=== PATIENT | male | born 1965 | race Caucasian/White ===

== ENCOUNTER 2017-04-02 18:39 | Inpatient (IN) | payer OTHER ==
[2017-04-02 20:13] LABS: ADD MAN DIFF? NO
[2017-04-02] MEDS: NITROGLYCERIN (SL) 0.4 MG TAB SL (20:14)
[2017-04-02] MEDS: ASPIRIN 325 MG TAB PO (20:14)
[2017-04-02 20:16] LABS: WHITE BLOOD COUNT 13.2 10^3/ul (4.8-10.8)
[2017-04-02 20:16] LABS: BASOPHIL # 0.1 10^3/ul (0.0-0.1); BASOPHILS % 0.6 % (0.0-2.0); EOSINOPHILS # 0.3 10^3/ul (0.0-0.5); EOSINOPHILS % 2.4 % (0.0-7.0); HEMATOCRIT 42.1 % (42.0-52.0); LYMPHOCYTES % 15.3 % (15.0-51.0); MEAN CORPUSCULAR HEMOGLOBIN 28.4 pg (29.0-33.0); MEAN CORPUSCULAR HGB CONC 33.3 g/dl (32.0-37.0); MEAN CORPUSCULAR VOLUME 85.4 fl (82.0-101.0); MEAN PLATELET VOLUME 12.1 fl (7.4-10.4); MONOCYTE # 1.4 10^3/ul (0.3-0.9); MONOCYTES % 10.4 % (0.0-11.0); NEUTROPHIL # 9.4 10^3/ul (1.6-7.5); PLATELET COUNT 291 10^3/UL (140-415); RED BLOOD COUNT 4.93 10^6/ul (4.70-6.10); RED CELL DISTRIBUTION WIDTH 13.9 % (11.5-14.5)
[2017-04-02 20:41] LABS: INR 0.89; PARTIAL THROMBOPLASTIN TIME 36.6 Sec (25.0-35.0); PROTIME 12.1 Sec (11.9-14.9); PT RATIO 0.9
[2017-04-02 20:43] LABS: ALANINE AMINOTRANSFERASE 45 IU/L (13-69); ALBUMIN 4.6 g/dl (3.3-4.9); ALBUMIN/GLOBULIN RATIO 1.31; ALKALINE PHOSPHATASE 61 IU/L (42-121); ANION GAP 17 (8-16); ASPARTATE AMINO TRANSFERASE 92 IU/L (15-46); BILIRUBIN,INDIRECT 0.1 mg/dl (0-1.1); BILIRUBIN,TOTAL 0.1 mg/dl (0.2-1.3); BLOOD UREA NITROGEN 17 mg/dl (7-20); CALCIUM 9.4 mg/dl (8.4-10.2); CARBON DIOXIDE 26 mmol/L (21-31); CHLORIDE 105 mmol/L (97-110); GLUCOSE 102 mg/dl (70-220); SODIUM 144 mmol/L (135-144); TOTAL PROTEIN 8.1 g/dl (6.1-8.1)
[2017-04-02 20:44] LABS: D-DIMER 328.22 ng/ml (<460)
[2017-04-02] MEDS: NITROGLYCERIN 50 MG/D5W (PMX) 250 ML IV (21:04)
[2017-04-02] MEDS: HEPARIN 1000 UNITS/ML 10 ML INJ IV (21:11)
[2017-04-02] MEDS ORDERED: HEPARIN 25000 UNITS/250 ML 250 ML IV (21:30)
[2017-04-02] MEDS ORDERED: morphine 2 MG INJ IV (21:30)
[2017-04-02] MEDS ORDERED: NITROGLYCERIN 50 MG/D5W (PMX) 250 ML IV (21:30)
[2017-04-02] MEDS ORDERED: METOPROLOL 25 MG TAB PO (21:30)
[2017-04-02] MEDS: ASPIRIN 81 MG TAB PO (21:30)
[2017-04-02] MEDS ORDERED: morphine 4 MG/ML VIAL IV (21:30)
[2017-04-02] MEDS: DEXTROSE 5%-0.45% NACL 1,000 ML IV (21:43)
[2017-04-02] MEDS ORDERED: ONDANSETRON 4 MG INJ IV (22:00)
[2017-04-02] MEDS ORDERED: ALBUTEROL/IPRATROPIUM (NEB) 3 ML AMP NEB (22:00)
[2017-04-02] MEDS ORDERED: ACETAMINOPHEN 650MG/20.3ML CUP PO (22:00)
[2017-04-02] MEDS ORDERED: ZOLPIDEM 5 MG TAB PO (22:00)
[2017-04-02] MEDS ORDERED: DOCUSATE SODIUM 100 MG CAP PO (22:00)
[2017-04-02] MEDS ORDERED: BISACODYL (EC) 5 MG TAB PO (22:00)
[2017-04-02] MEDS ORDERED: POTASSIUM CHLORIDE 20 MEQ POWDER FOR ORAL SOLN PO ×3 (22:00)
[2017-04-02] MEDS ORDERED: HYDROCODONE/APAP (5/325) TAB PO (22:00)
[2017-04-02] MEDS ORDERED: LORAZEPAM 2 MG INJ IV (22:00)
[2017-04-02] MEDS: HEPARIN 25000 UNITS/250 ML 250 ML IV (22:37)
[2017-04-02 22:44] LABS: CREATINE KINASE 979 IU/L (23-200)
[2017-04-02 22:45] LABS: CHOLESTEROL 309 mg/dl (100-200)
[2017-04-02 22:45] LABS: CHOL/HDL RATIO 7.9 RATIO; HDL CHOLESTEROL 39 mg/dl (28-71); LDL CHOLESTEROL,CALCULATED 235 mg/dl; TRIGLYCERIDES 176 mg/dl (0-149)
[2017-04-02 22:47] LABS: PROTIME 13.3 Sec (11.9-14.9)
[2017-04-02 22:55] LABS: B-TYPE NATRIURETIC PEPTIDE 576 PG/ML (0-125)
[2017-04-02 22:56] LABS: PARTIAL THROMBOPLASTIN TIME 78.2 Sec (25.0-35.0)
[2017-04-02 22:57] LABS: CK INDEX 4.5
[2017-04-03] MEDS ORDERED: LORAZEPAM 2 MG INJ IV (01:00)
[2017-04-03 01:13] LABS: ADD UMIC YES; UR ASCORBIC ACID NEGATIVE (NEGATIVE); UR BILIRUBIN (Dip) NEGATIVE (NEGATIVE); UR BLOOD (Dip) NEGATIVE (NEGATIVE); UR CLARITY CLEAR (CLEAR); UR COLOR YELLOW (YELLOW); UR GLUCOSE (Dip) NEGATIVE (NEGATIVE); UR KETONES (Dip) NEGATIVE (NEGATIVE); UR LEUKOCYTE ESTERASE (Dip) NEGATIVE Leu/ul (NEGATIVE); UR NITRITE (Dip) NEGATIVE (NEGATIVE); UR RBC 4 /HPF (0-5); UR SPECIFIC GRAVITY (Dip) 1.026 (1.003-1.030); UR TOTAL PROTEIN (Dip) 2+ mg/dl (NEGATIVE); UR UROBILINOGEN (Dip) NEGATIVE (NEGATIVE); UR WBC 1 /HPF (0-5)
[2017-04-03] MEDS: ATORVASTATIN 80 MG TAB PO ×2 (01:23→21:42)
[2017-04-03 01:53] LABS: AMPHETAMINE/METHAMPHETAMINE Negative (NEGATIVE); BARBITURATES Negative (NEGATIVE); BENZODIAZEPINES Negative (NEGATIVE); CANNABINOIDS Negative (NEGATIVE); COCAINE Negative (NEGATIVE); OPIATES Positive (NEGATIVE)
[2017-04-03 03:36] LABS: CREATINE KINASE 1015 IU/L (23-200)
[2017-04-03 03:48] LABS: CK INDEX 3.8
[2017-04-03] MEDS: PANTOPRAZOLE 40 MG INJ IV (05:06)
[2017-04-03] MEDS: HEPARIN 1000 UNITS/ML 10 ML INJ IV (08:10)
[2017-04-03] MEDS: CALCIUM CARBONATE 500 MG CHEW TAB PO ×4 (08:25→21:40)
[2017-04-03] MEDS: AL HYDROX/MG HYDROX/SIMETH 30 ML CUP PO ×4 (08:25→21:42)
[2017-04-03] MEDS: METOPROLOL 50 MG TAB PO (08:42)
[2017-04-03] MEDS: LISINOPRIL 20 MG TAB PO (08:43)
[2017-04-03 08:55] LABS: CREATINE KINASE 898 IU/L (23-200)
[2017-04-03] MEDS ORDERED: ATENOLOL 25 MG TAB PO (09:00)
[2017-04-03 09:07] LABS: CK INDEX 3.6
[2017-04-03 09:52] LABS: CREATINE KINASE 902 IU/L (23-200)
[2017-04-03 10:03] LABS: CK INDEX 3.4
[2017-04-03] MEDS ORDERED: morphine 2 MG INJ IV ×2 (10:30→13:00)
[2017-04-03] MEDS: DEXTROSE 5%-0.45% NACL 1,000 ML IV (11:03)
[2017-04-03] MEDS ORDERED: MIDAZOLAM 1 MG/ML 2 ML INJ (11:06)
[2017-04-03] MEDS ORDERED: FENTAnyl 50 MCG/ML VIAL (11:07)
[2017-04-03] MEDS ORDERED: VERAPAMIL 5 MG INJ (11:25)
[2017-04-03] MEDS ORDERED: IODIXANOL LOCM 100 ML BTL (11:25)
[2017-04-03] MEDS ORDERED: LIDOCAINE 1% (MDV) 20 ML INJ (11:25)
[2017-04-03] MEDS ORDERED: NITROGLYCERIN (IC) 100 MCG/ML INJ (11:25)
[2017-04-03] MEDS ORDERED: BIVALIRUDIN 250MG /NS 50 ML 50 ML IVPB (11:27)
[2017-04-03] MEDS ORDERED: PRASUGREL HYDROCHLORIDE 10 MG TABLET PO (11:28)
[2017-04-03] MEDS ORDERED: OXYCODONE/ACETAMINOPHEN (5/325) TAB PO (13:00)
[2017-04-03] MEDS: ISOSORBIDE DINITRATE 20 MG TAB PO ×3 (13:00→21:42)
[2017-04-03] MEDS: SOD CHLORIDE 0.9% 1,000 ML IV (14:42)
[2017-04-03 14:47] LABS: HEMOGLOBIN A1C 5.7 % (0-5.9)
[2017-04-03 14:53] LABS: PARTIAL THROMBOPLASTIN TIME 71.7 Sec (25.0-35.0)
[2017-04-03] MEDS: ACETAMINOPHEN 325 MG TAB PO (18:10)
[2017-04-03] MEDS: BUPROPION (SR) 150 MG TAB PO (21:42)
[2017-04-04 05:11] LABS: ADD MAN DIFF? NO
[2017-04-04 05:18] LABS: WHITE BLOOD COUNT 13.8 10^3/ul (4.8-10.8)
[2017-04-04 05:18] LABS: BASOPHILS % 0.3 % (0.0-2.0); EOSINOPHILS # 0.1 10^3/ul (0.0-0.5); EOSINOPHILS % 0.7 % (0.0-7.0); HEMATOCRIT 36.7 % (42.0-52.0); HEMOGLOBIN 12.3 g/dl (14.0-18.0); LYMPHOCYTES # 1.9 10^3/ul (0.8-2.9); LYMPHOCYTES % 13.8 % (15.0-51.0); MEAN CORPUSCULAR HEMOGLOBIN 28.8 pg (29.0-33.0); MEAN CORPUSCULAR HGB CONC 33.5 g/dl (32.0-37.0); MEAN CORPUSCULAR VOLUME 85.9 fl (82.0-101.0); MEAN PLATELET VOLUME 12.3 fl (7.4-10.4); MONOCYTE # 1.4 10^3/ul (0.3-0.9); MONOCYTES % 10.2 % (0.0-11.0); NEUTROPHIL # 10.3 10^3/ul (1.6-7.5); NEUTROPHILS % 74.6 % (39.0-77.0); PLATELET COUNT 244 10^3/UL (140-415); RED BLOOD COUNT 4.27 10^6/ul (4.70-6.10); RED CELL DISTRIBUTION WIDTH 14.1 % (11.5-14.5)
[2017-04-04] MEDS: PANTOPRAZOLE 40 MG INJ IV (05:43)
[2017-04-04 05:52] LABS: PHOSPHORUS 3.1 mg/dl (2.5-4.9)
[2017-04-04 05:57] LABS: ALANINE AMINOTRANSFERASE 41 IU/L (13-69); ALBUMIN 3.7 g/dl (3.3-4.9); ALBUMIN/GLOBULIN RATIO 1.08; ALKALINE PHOSPHATASE 52 IU/L (42-121); ANION GAP 11 (8-16); ASPARTATE AMINO TRANSFERASE 54 IU/L (15-46); BILIRUBIN,INDIRECT 0.3 mg/dl (0-1.1); BILIRUBIN,TOTAL 0.3 mg/dl (0.2-1.3); BLOOD UREA NITROGEN 14 mg/dl (7-20); CALCIUM 9.4 mg/dl (8.4-10.2); CARBON DIOXIDE 27 mmol/L (21-31); CHLORIDE 107 mmol/L (97-110); CHOL/HDL RATIO 6.2 RATIO; CHOLESTEROL 232 mg/dl (100-200); CREATININE 0.92 mg/dl (0.61-1.24); GLUCOSE 176 mg/dl (70-220); HDL CHOLESTEROL 37 mg/dl (28-71); LDL CHOLESTEROL,CALCULATED 167 mg/dl; POTASSIUM 3.8 mmol/L (3.5-5.1); SODIUM 141 mmol/L (135-144); TOTAL PROTEIN 7.1 g/dl (6.1-8.1); TRIGLYCERIDES 142 mg/dl (0-149)
[2017-04-04 06:00] LABS: B-TYPE NATRIURETIC PEPTIDE 422 PG/ML (0-125)
[2017-04-04 06:02] LABS: CK INDEX 2.2
[2017-04-04 06:09] LABS: CK-MB 8.81 ng/ml (0.0-2.4); CREATINE KINASE 407 IU/L (23-200)
[2017-04-04 06:22] LABS: THYROID STIMULATING HORMONE 0.615 MIU/L (0.465-4.680)
[2017-04-04] MEDS: ASPIRIN (EC) 81 MG TAB PO (08:12)
[2017-04-04] MEDS: CALCIUM CARBONATE 500 MG CHEW TAB PO ×4 (08:12→20:20)
[2017-04-04] MEDS: ISOSORBIDE DINITRATE 20 MG TAB PO ×3 (08:12→20:22)
[2017-04-04] MEDS: PRASUGREL HYDROCHLORIDE 10 MG TABLET PO (08:12)
[2017-04-04] MEDS: LISINOPRIL 20 MG TAB PO (08:13)
[2017-04-04] MEDS: AL HYDROX/MG HYDROX/SIMETH 30 ML CUP PO ×4 (08:13→20:21)
[2017-04-04] MEDS: NICOTINE (21 MG/24 HR) PATCH TRANSDERM (11:18)
[2017-04-04] MEDS: ACETAMINOPHEN 325 MG TAB PO (18:54)
[2017-04-04] MEDS: ATORVASTATIN 80 MG TAB PO (20:21)
[2017-04-04] MEDS: BUPROPION (SR) 150 MG TAB PO (20:22)
[2017-04-05] MEDS: PANTOPRAZOLE 40 MG INJ IV (06:14)
[2017-04-05] MEDS ORDERED: MIDAZOLAM 1 MG/ML 2 ML INJ (07:17)
[2017-04-05] MEDS ORDERED: BIVALIRUDIN 250MG /NS 50 ML 50 ML IVPB (07:17)
[2017-04-05] MEDS ORDERED: LIDOCAINE 1% (MDV) 20 ML INJ (07:17)
[2017-04-05] MEDS ORDERED: FENTAnyl 50 MCG/ML VIAL (07:17)
[2017-04-05] MEDS ORDERED: NITROGLYCERIN (IC) 100 MCG/ML INJ (07:31)
[2017-04-05] MEDS ORDERED: VERAPAMIL 5 MG INJ (07:31)
[2017-04-05 07:45] LABS: ADD MAN DIFF? NO
[2017-04-05 07:55] LABS: ABNORMAL IP MESSAGE 1; BASOPHIL # 0.1 10^3/ul (0.0-0.1); BASOPHILS % 0.6 % (0.0-2.0); EOSINOPHILS # 0.3 10^3/ul (0.0-0.5); LYMPHOCYTES # 2.3 10^3/ul (0.8-2.9); LYMPHOCYTES % 16.1 % (15.0-51.0); MEAN CORPUSCULAR HEMOGLOBIN 28.4 pg (29.0-33.0); MEAN CORPUSCULAR HGB CONC 32.5 g/dl (32.0-37.0); MEAN CORPUSCULAR VOLUME 87.5 fl (82.0-101.0); MEAN PLATELET VOLUME 11.8 fl (7.4-10.4); MONOCYTE # 1.6 10^3/ul (0.3-0.9); MONOCYTES % 10.9 % (0.0-11.0); NEUTROPHILS % 69.9 % (39.0-77.0); PLATELET COUNT 272 10^3/UL (140-415); POSITIVE DIFF @See below; RED BLOOD COUNT 4.57 10^6/ul (4.70-6.10); RED CELL DISTRIBUTION WIDTH 13.9 % (11.5-14.5)
[2017-04-05 07:55] LABS: WHITE BLOOD COUNT 14.3 10^3/ul (4.8-10.8)
[2017-04-05 08:12] LABS: CREATINE KINASE 201 IU/L (23-200)
[2017-04-05 08:14] LABS: ALANINE AMINOTRANSFERASE 29 IU/L (13-69); ALBUMIN 4.2 g/dl (3.3-4.9); ALBUMIN/GLOBULIN RATIO 1.07; ALKALINE PHOSPHATASE 62 IU/L (42-121); ANION GAP 14 (8-16); ASPARTATE AMINO TRANSFERASE 34 IU/L (15-46); BILIRUBIN,INDIRECT 0.3 mg/dl (0-1.1); BILIRUBIN,TOTAL 0.3 mg/dl (0.2-1.3); BLOOD UREA NITROGEN 20 mg/dl (7-20); CALCIUM 9.7 mg/dl (8.4-10.2); CARBON DIOXIDE 29 mmol/L (21-31); CHLORIDE 104 mmol/L (97-110); CREATININE 1.05 mg/dl (0.61-1.24); GLUCOSE 115 mg/dl (70-220); MAGNESIUM 2.3 mg/dl (1.7-2.5); POTASSIUM 4.1 mmol/L (3.5-5.1); SODIUM 143 mmol/L (135-144); TOTAL PROTEIN 8.1 g/dl (6.1-8.1)
[2017-04-05 08:22] LABS: B-TYPE NATRIURETIC PEPTIDE 170 PG/ML (0-125)
[2017-04-05] MEDS ORDERED: IODIXANOL LOCM 100 ML BTL ×2 (08:22)
[2017-04-05 08:24] LABS: CK INDEX 1.3
[2017-04-05] MEDS: PRASUGREL HYDROCHLORIDE 10 MG TABLET PO (08:30)
[2017-04-05 08:42] LABS: CK-MB 2.54 ng/ml (0.0-2.4)
[2017-04-05 09:16] LABS: PROTIME 12.2 Sec (11.9-14.9)
[2017-04-05] MEDS: ISOSORBIDE DINITRATE 20 MG TAB PO ×3 (11:09→20:27)
[2017-04-05] MEDS: AL HYDROX/MG HYDROX/SIMETH 30 ML CUP PO ×4 (11:11→20:27)
[2017-04-05] MEDS: CALCIUM CARBONATE 500 MG CHEW TAB PO ×4 (11:12→21:44)
[2017-04-05] MEDS: LISINOPRIL 20 MG TAB PO (11:13)
[2017-04-05] MEDS: NICOTINE (21 MG/24 HR) PATCH TRANSDERM (11:16)
[2017-04-05] MEDS: ASPIRIN (EC) 81 MG TAB PO (11:19)
[2017-04-05] MEDS: SOD CHLORIDE 0.9% 1,000 ML IV (17:00)
[2017-04-05] MEDS: ATORVASTATIN 80 MG TAB PO (20:26)
[2017-04-05] MEDS: BUPROPION (SR) 150 MG TAB PO (21:44)
[2017-04-06] MEDS: PANTOPRAZOLE 40 MG INJ IV (05:23)
[2017-04-06 08:27] LABS: ADD MAN DIFF? NO
[2017-04-06 08:33] LABS: WHITE BLOOD COUNT 11.2 10^3/ul (4.8-10.8)
[2017-04-06 08:33] LABS: BASOPHIL # 0.1 10^3/ul (0.0-0.1); BASOPHILS % 0.4 % (0.0-2.0); EOSINOPHILS # 0.3 10^3/ul (0.0-0.5); EOSINOPHILS % 2.2 % (0.0-7.0); HEMATOCRIT 37.2 % (42.0-52.0); HEMOGLOBIN 12.2 g/dl (14.0-18.0); LYMPHOCYTES % 17.5 % (15.0-51.0); MEAN CORPUSCULAR HEMOGLOBIN 28.3 pg (29.0-33.0); MEAN CORPUSCULAR HGB CONC 32.8 g/dl (32.0-37.0); MEAN CORPUSCULAR VOLUME 86.3 fl (82.0-101.0); MEAN PLATELET VOLUME 12.4 fl (7.4-10.4); MONOCYTE # 1.1 10^3/ul (0.3-0.9); MONOCYTES % 9.7 % (0.0-11.0); NEUTROPHIL # 7.8 10^3/ul (1.6-7.5); NEUTROPHILS % 69.8 % (39.0-77.0); PLATELET COUNT 252 10^3/UL (140-415); RED BLOOD COUNT 4.31 10^6/ul (4.70-6.10); RED CELL DISTRIBUTION WIDTH 13.8 % (11.5-14.5)
[2017-04-06] MEDS: LISINOPRIL 20 MG TAB PO (08:44)
[2017-04-06] MEDS: AL HYDROX/MG HYDROX/SIMETH 30 ML CUP PO ×2 (08:44→12:35)
[2017-04-06] MEDS: ASPIRIN (EC) 81 MG TAB PO (08:44)
[2017-04-06] MEDS: ISOSORBIDE DINITRATE 20 MG TAB PO ×2 (08:44→12:36)
[2017-04-06] MEDS: CALCIUM CARBONATE 500 MG CHEW TAB PO ×2 (08:44→12:35)
[2017-04-06] MEDS: PRASUGREL HYDROCHLORIDE 10 MG TABLET PO (08:44)
[2017-04-06] MEDS: NICOTINE (21 MG/24 HR) PATCH TRANSDERM (08:45)
[2017-04-06 08:48] LABS: CREATINE KINASE 113 IU/L (23-200)
[2017-04-06 08:51] LABS: ANION GAP 16 (8-16); BLOOD UREA NITROGEN 22 mg/dl (7-20); CALCIUM 9.1 mg/dl (8.4-10.2); CARBON DIOXIDE 26 mmol/L (21-31); CHLORIDE 104 mmol/L (97-110); CREATININE 0.92 mg/dl (0.61-1.24); GLUCOSE 109 mg/dl (70-220); POTASSIUM 4.6 mmol/L (3.5-5.1); SODIUM 141 mmol/L (135-144)
[2017-04-06 08:55] LABS: ALANINE AMINOTRANSFERASE 27 IU/L (13-69); ALBUMIN 3.8 g/dl (3.3-4.9); ALBUMIN/GLOBULIN RATIO 1.22; ALKALINE PHOSPHATASE 52 IU/L (42-121); ANION GAP 15 (8-16); ASPARTATE AMINO TRANSFERASE 22 IU/L (15-46); BILIRUBIN,INDIRECT 0.3 mg/dl (0-1.1); BILIRUBIN,TOTAL 0.3 mg/dl (0.2-1.3); BLOOD UREA NITROGEN 21 mg/dl (7-20); CALCIUM 9.5 mg/dl (8.4-10.2); CARBON DIOXIDE 26 mmol/L (21-31); CHLORIDE 105 mmol/L (97-110); CREATININE 0.91 mg/dl (0.61-1.24); GLUCOSE 110 mg/dl (70-220); POTASSIUM 4.7 mmol/L (3.5-5.1); SODIUM 141 mmol/L (135-144); TOTAL PROTEIN 6.9 g/dl (6.1-8.1)
[2017-04-06 09:01] LABS: CK INDEX 1.3
[2017-04-06 09:13] LABS: CK-MB 1.47 ng/ml (0.0-2.4)
[2017-04-06 09:37] LABS: MAGNESIUM 2.3 mg/dl (1.7-2.5)
[2017-04-06 09:37] LABS: PHOSPHORUS 4.3 mg/dl (2.5-4.9)
[2017-04-07 06:46] LABS: URINE DRUG SCREEN RESULT DRUG(S) DETECTED:
== END 2017-04-06 16:55 | disposition home or self-care (01) | DRG 246 ==
LOC: E/R 18:39 → ICU 04-05 06:02 → TEL 04-04 21:05 → ICU 04-03 10:00 → MS4 04-05 16:21 → ICU 21:43
PROC: 027036Z Dilation of Coronary Artery, One Artery with Three Drug-eluting Intraluminal Devices, Percutaneous Approach (ICD-10-PCS; principal; 2017-04-03 10:57)
PROC: 027035Z Dilation of Coronary Artery, One Artery with Two Drug-eluting Intraluminal Devices, Percutaneous Approach (ICD-10-PCS; 2017-04-03 10:57)
PROC: 02C03ZZ Extirpation of Matter from Coronary Artery, One Artery, Percutaneous Approach (ICD-10-PCS; 2017-04-03 10:57)
PROC: 02C03ZZ Extirpation of Matter from Coronary Artery, One Artery, Percutaneous Approach (ICD-10-PCS; 2017-04-03 10:57)
PROC: 4A023N7 Measurement of Cardiac Sampling and Pressure, Left Heart, Percutaneous Approach (ICD-10-PCS; 2017-04-03 10:57)
PROC: B211YZZ Fluoroscopy of Multiple Coronary Arteries using Other Contrast (ICD-10-PCS; 2017-04-03 10:57)
PROC: 4A023N7 Measurement of Cardiac Sampling and Pressure, Left Heart, Percutaneous Approach (ICD-10-PCS; 2017-04-03 10:57)
PROC: B211YZZ Fluoroscopy of Multiple Coronary Arteries using Other Contrast (ICD-10-PCS; 2017-04-03 10:57)
DX: I21.4 Non-ST elevation (NSTEMI) myocardial infarction (principal); I50.41 Acute combined systolic (congestive) and diastolic (congestive) heart failure; I23.7 Postinfarction angina; I10 Essential (primary) hypertension; I16.0 Hypertensive urgency; F17.200 Nicotine dependence, unspecified, uncomplicated; E78.5 Hyperlipidemia, unspecified; F41.9 Anxiety disorder, unspecified; E66.9 Obesity, unspecified; Z68.30 Body mass index [BMI] 30.0-30.9, adult
CPT/HCPCS: 36415; 71045; 80048; 80053; 80061; 80307; 81001; 82550; 82553; 83036; 83735; 83880; 84100; 84443; 84484; 85025; 85378; 85610; 85730; 86850; 86900; 86901; 87081; 93005; 93306; 93458; 93970; 96365; 96366; 96375; 96376; 99291-25

== ENCOUNTER 2017-04-16 12:58 | Inpatient (IN) | payer OTHER ==
[2017-04-16] MEDS: ASPIRIN 81 MG TAB PO (13:33)
[2017-04-16 13:53] LABS: ADD MAN DIFF? NO
[2017-04-16 13:54] LABS: WHITE BLOOD COUNT 10.9 10^3/ul (4.8-10.8)
[2017-04-16 13:54] LABS: BASOPHIL # 0.1 10^3/ul (0.0-0.1); BASOPHILS % 0.6 % (0.0-2.0); EOSINOPHILS # 0.5 10^3/ul (0.0-0.5); EOSINOPHILS % 4.2 % (0.0-7.0); HEMOGLOBIN 12.8 g/dl (14.0-18.0); LYMPHOCYTES # 2.1 10^3/ul (0.8-2.9); LYMPHOCYTES % 19.7 % (15.0-51.0); MEAN CORPUSCULAR HEMOGLOBIN 28.1 pg (29.0-33.0); MEAN CORPUSCULAR HGB CONC 33.7 g/dl (32.0-37.0); MEAN CORPUSCULAR VOLUME 83.5 fl (82.0-101.0); MEAN PLATELET VOLUME 11.2 fl (7.4-10.4); MONOCYTE # 0.8 10^3/ul (0.3-0.9); MONOCYTES % 7.2 % (0.0-11.0); NEUTROPHIL # 7.3 10^3/ul (1.6-7.5); NEUTROPHILS % 67.4 % (39.0-77.0); PLATELET COUNT 459 10^3/UL (140-415); RED BLOOD COUNT 4.55 10^6/ul (4.70-6.10)
[2017-04-16 14:09] LABS: INR 0.93; PROTIME 12.6 Sec (11.9-14.9)
[2017-04-16 14:14] LABS: ALANINE AMINOTRANSFERASE 29 IU/L (13-69); ALBUMIN 4.6 g/dl (3.3-4.9); ALBUMIN/GLOBULIN RATIO 1.15; ALKALINE PHOSPHATASE 68 IU/L (42-121); ANION GAP 18 (8-16); ASPARTATE AMINO TRANSFERASE 21 IU/L (15-46); BILIRUBIN,INDIRECT 0.1 mg/dl (0-1.1); BILIRUBIN,TOTAL 0.1 mg/dl (0.2-1.3); BLOOD UREA NITROGEN 17 mg/dl (7-20); CALCIUM 9.8 mg/dl (8.4-10.2); CARBON DIOXIDE 24 mmol/L (21-31); CHLORIDE 107 mmol/L (97-110); CREATININE 0.96 mg/dl (0.61-1.24); GLUCOSE 114 mg/dl (70-220); SODIUM 144 mmol/L (135-144); TOTAL PROTEIN 8.6 g/dl (6.1-8.1)
[2017-04-16 14:26] LABS: B-TYPE NATRIURETIC PEPTIDE 360 PG/ML (0-125); TROPONIN-I 0.043 ng/ml (0.00-0.12)
[2017-04-16] MEDS: morphine 4 MG/ML VIAL IV (14:29)
[2017-04-16] MEDS ORDERED: DOCUSATE SODIUM 100 MG CAP PO (16:00)
[2017-04-16] MEDS ORDERED: morphine 2 MG INJ IV (16:00)
[2017-04-16] MEDS ORDERED: NACL 0.9% 3 ML SYG IV (16:00)
[2017-04-16] MEDS ORDERED: NITROGLYCERIN (SL) 0.4 MG TAB SL (16:00)
[2017-04-16] MEDS ORDERED: BISACODYL 10 MG SUPP PR (16:00)
[2017-04-16] MEDS ORDERED: ONDANSETRON 4 MG INJ IV ×2 (16:00)
[2017-04-16] MEDS ORDERED: MAGNESIUM HYDROXIDE 30ML CUP PO (16:00)
[2017-04-16] MEDS ORDERED: ACETAMINOPHEN 325 MG TAB PO ×2 (16:00)
[2017-04-16] MEDS ORDERED: morphine LIQ (10 MG/5 ML) CUP PO (16:30)
[2017-04-16 20:11] LABS: CREATINE KINASE 64 IU/L (23-200)
[2017-04-16 20:24] LABS: CK INDEX 0.6; TROPONIN-I 0.042 ng/ml (0.00-0.12)
[2017-04-16 20:26] LABS: CK-MB 0.37 ng/ml (0.0-2.4)
[2017-04-16] MEDS: ATORVASTATIN 80 MG TAB PO (21:05)
[2017-04-16] MEDS: ISOSORBIDE DINITRATE 20 MG TAB PO (21:06)
[2017-04-16] MEDS: FAMOTIDINE 20 MG TAB PO (21:13)
[2017-04-17 01:16] LABS: CREATINE KINASE 58 IU/L (23-200)
[2017-04-17 02:00] LABS: CK INDEX 0.6
[2017-04-17 02:04] LABS: TROPONIN-I 0.045 ng/ml (0.00-0.12)
[2017-04-17 02:05] LABS: CK-MB 0.32 ng/ml (0.0-2.4)
[2017-04-17 07:26] LABS: ADD MAN DIFF? NO
[2017-04-17 07:30] LABS: BASOPHIL # 0.1 10^3/ul (0.0-0.1); BASOPHILS % 0.6 % (0.0-2.0); EOSINOPHILS # 0.4 10^3/ul (0.0-0.5); EOSINOPHILS % 4.3 % (0.0-7.0); HEMATOCRIT 38.3 % (42.0-52.0); HEMOGLOBIN 12.4 g/dl (14.0-18.0); LYMPHOCYTES # 2.1 10^3/ul (0.8-2.9); LYMPHOCYTES % 22.4 % (15.0-51.0); MEAN CORPUSCULAR HEMOGLOBIN 27.7 pg (29.0-33.0); MEAN CORPUSCULAR HGB CONC 32.4 g/dl (32.0-37.0); MEAN CORPUSCULAR VOLUME 85.5 fl (82.0-101.0); MONOCYTE # 0.8 10^3/ul (0.3-0.9); MONOCYTES % 8.5 % (0.0-11.0); NEUTROPHILS % 63.4 % (39.0-77.0); PLATELET COUNT 410 10^3/UL (140-415); RED BLOOD COUNT 4.48 10^6/ul (4.70-6.10); RED CELL DISTRIBUTION WIDTH 13.2 % (11.5-14.5)
[2017-04-17 07:30] LABS: WHITE BLOOD COUNT 9.5 10^3/ul (4.8-10.8)
[2017-04-17 07:52] LABS: CREATINE KINASE 55 IU/L (23-200)
[2017-04-17 07:53] LABS: ALANINE AMINOTRANSFERASE 26 IU/L (13-69); ALBUMIN 3.7 g/dl (3.3-4.9); ALBUMIN/GLOBULIN RATIO 1.08; ALKALINE PHOSPHATASE 60 IU/L (42-121); ANION GAP 14 (8-16); ASPARTATE AMINO TRANSFERASE 17 IU/L (15-46); BILIRUBIN,INDIRECT 0.1 mg/dl (0-1.1); BILIRUBIN,TOTAL 0.1 mg/dl (0.2-1.3); BLOOD UREA NITROGEN 20 mg/dl (7-20); CALCIUM 9.4 mg/dl (8.4-10.2); CARBON DIOXIDE 27 mmol/L (21-31); CHLORIDE 106 mmol/L (97-110); CREATININE 1.02 mg/dl (0.61-1.24); GLUCOSE 103 mg/dl (70-220); POTASSIUM 4.8 mmol/L (3.5-5.1); SODIUM 142 mmol/L (135-144); TOTAL PROTEIN 7.1 g/dl (6.1-8.1)
[2017-04-17 07:55] LABS: CHOL/HDL RATIO 6.8 RATIO; HDL CHOLESTEROL 26 mg/dl (28-71); LDL CHOLESTEROL,CALCULATED 105 mg/dl; TRIGLYCERIDES 240 mg/dl (0-149)
[2017-04-17 07:55] LABS: CHOLESTEROL 179 mg/dl (100-200)
[2017-04-17 08:02] LABS: B-TYPE NATRIURETIC PEPTIDE 231 PG/ML (0-125)
[2017-04-17 08:03] LABS: INR 1.02; PROTIME 13.5 Sec (11.9-14.9); PT RATIO 1.1
[2017-04-17 08:05] LABS: CK INDEX 0.6; CK-MB 0.31 ng/ml (0.0-2.4); TROPONIN-I 0.047 ng/ml (0.00-0.12)
[2017-04-17] MEDS: ISOSORBIDE DINITRATE 20 MG TAB PO ×3 (09:22→21:00)
[2017-04-17] MEDS: FAMOTIDINE 20 MG TAB PO ×2 (09:22→20:33)
[2017-04-17] MEDS: ASPIRIN (EC) 81 MG TAB PO (09:22)
[2017-04-17] MEDS: PRASUGREL HYDROCHLORIDE 10 MG TABLET PO (09:25)
[2017-04-17] MEDS ORDERED: LIDOCAINE 1% (MDV) 20 ML INJ (14:33)
[2017-04-17] MEDS ORDERED: MIDAZOLAM 1 MG/ML 2 ML INJ (14:33)
[2017-04-17] MEDS ORDERED: FENTAnyl 50 MCG/ML VIAL (14:33)
[2017-04-17] MEDS ORDERED: VERAPAMIL 5 MG INJ (14:47)
[2017-04-17] MEDS ORDERED: HEPARIN 1000 UNITS/ML 10 ML INJ (14:47)
[2017-04-17] MEDS ORDERED: NITROGLYCERIN (IC) 100 MCG/ML INJ (14:47)
[2017-04-17] MEDS: SOD CHLORIDE 0.9% 1,000 ML IV (17:06)
[2017-04-17] MEDS: ATORVASTATIN 80 MG TAB PO (20:33)
[2017-04-18 05:51] LABS: ADD MAN DIFF? NO
[2017-04-18 05:57] LABS: WHITE BLOOD COUNT 9.2 10^3/ul (4.8-10.8)
[2017-04-18 05:57] LABS: BASOPHIL # 0.1 10^3/ul (0.0-0.1); BASOPHILS % 0.9 % (0.0-2.0); EOSINOPHILS # 0.4 10^3/ul (0.0-0.5); HEMATOCRIT 37.2 % (42.0-52.0); HEMOGLOBIN 12.1 g/dl (14.0-18.0); LYMPHOCYTES # 1.6 10^3/ul (0.8-2.9); LYMPHOCYTES % 17.2 % (15.0-51.0); MEAN CORPUSCULAR HEMOGLOBIN 27.4 pg (29.0-33.0); MEAN CORPUSCULAR HGB CONC 32.5 g/dl (32.0-37.0); MEAN CORPUSCULAR VOLUME 84.4 fl (82.0-101.0); MONOCYTE # 0.8 10^3/ul (0.3-0.9); MONOCYTES % 8.2 % (0.0-11.0); NEUTROPHIL # 6.4 10^3/ul (1.6-7.5); NEUTROPHILS % 69.4 % (39.0-77.0); PLATELET COUNT 367 10^3/UL (140-415); RED BLOOD COUNT 4.41 10^6/ul (4.70-6.10)
[2017-04-18 06:29] LABS: ANION GAP 15 (8-16); BLOOD UREA NITROGEN 20 mg/dl (7-20); CALCIUM 9.2 mg/dl (8.4-10.2); CARBON DIOXIDE 25 mmol/L (21-31); CHLORIDE 107 mmol/L (97-110); CREATININE 0.91 mg/dl (0.61-1.24); GLUCOSE 128 mg/dl (70-220); POTASSIUM 4.2 mmol/L (3.5-5.1); SODIUM 143 mmol/L (135-144)
[2017-04-18 06:45] LABS: MAGNESIUM 2.1 mg/dl (1.7-2.5)
[2017-04-18] MEDS: ASPIRIN (EC) 81 MG TAB PO (08:10)
[2017-04-18] MEDS: ISOSORBIDE DINITRATE 20 MG TAB PO (08:10)
[2017-04-18] MEDS: FAMOTIDINE 20 MG TAB PO (08:10)
[2017-04-18] MEDS: PRASUGREL HYDROCHLORIDE 10 MG TABLET PO (09:35)
== END 2017-04-18 12:05 | disposition home or self-care (01) | DRG 247 ==
LOC: E/R 12:58 → ICU 04-17 15:59 → MS4 15:59
PROC: 027034Z Dilation of Coronary Artery, One Artery with Drug-eluting Intraluminal Device, Percutaneous Approach (ICD-10-PCS; principal; 2017-04-17 14:00)
PROC: 4A023N7 Measurement of Cardiac Sampling and Pressure, Left Heart, Percutaneous Approach (ICD-10-PCS; 2017-04-17 14:00)
PROC: B211YZZ Fluoroscopy of Multiple Coronary Arteries using Other Contrast (ICD-10-PCS; 2017-04-17 14:00)
DX: I24.9 Acute ischemic heart disease, unspecified (principal); I11.0 Hypertensive heart disease with heart failure; I50.20 Unspecified systolic (congestive) heart failure; I25.10 Atherosclerotic heart disease of native coronary artery without angina pectoris; E78.5 Hyperlipidemia, unspecified; F17.200 Nicotine dependence, unspecified, uncomplicated; I25.2 Old myocardial infarction; Z95.5 Presence of coronary angioplasty implant and graft; Z79.02 Long term (current) use of antithrombotics/antiplatelets; Z79.82 Long term (current) use of aspirin
CPT/HCPCS: 36415; 71045; 80048; 80053; 80061; 82550; 82553; 83735; 83880; 84439; 84443; 84484; 85025; 85610; 87081; 93005; 93454; 96374; 99285-25

== ENCOUNTER 2017-05-22 15:26 | Observation (INO) | payer OTHER ==
[2017-05-22] MEDS ORDERED: NITROGLYCERIN (SL) 0.4 MG TAB SL (16:00)
[2017-05-22] MEDS: ASPIRIN 81 MG TAB PO (16:13)
[2017-05-22] MEDS: ONDANSETRON 4 MG INJ IV (16:13)
[2017-05-22] MEDS: NITROGLYCERIN 2% 1 GM OINT PKT TD (16:14)
[2017-05-22] MEDS: morphine 4 MG/ML VIAL IV (16:14)
[2017-05-22 16:17] LABS: ADD MAN DIFF? NO
[2017-05-22 16:18] LABS: WHITE BLOOD COUNT 8.8 10^3/ul (4.8-10.8)
[2017-05-22 16:18] LABS: BASOPHIL # 0.1 10^3/ul (0.0-0.1); BASOPHILS % 0.7 % (0.0-2.0); EOSINOPHILS # 0.4 10^3/ul (0.0-0.5); EOSINOPHILS % 4.7 % (0.0-7.0); HEMATOCRIT 35.3 % (42.0-52.0); HEMOGLOBIN 11.6 g/dl (14.0-18.0); LYMPHOCYTES # 1.8 10^3/ul (0.8-2.9); MEAN CORPUSCULAR HEMOGLOBIN 27.8 pg (29.0-33.0); MEAN CORPUSCULAR HGB CONC 32.9 g/dl (32.0-37.0); MEAN CORPUSCULAR VOLUME 84.4 fl (82.0-101.0); MEAN PLATELET VOLUME 11.5 fl (7.4-10.4); MONOCYTE # 0.8 10^3/ul (0.3-0.9); MONOCYTES % 9.2 % (0.0-11.0); NEUTROPHIL # 5.7 10^3/ul (1.6-7.5); NEUTROPHILS % 64.9 % (39.0-77.0); PLATELET COUNT 274 10^3/UL (140-415); RED BLOOD COUNT 4.18 10^6/ul (4.70-6.10); RED CELL DISTRIBUTION WIDTH 14.5 % (11.5-14.5)
[2017-05-22 16:36] LABS: ANION GAP 19 (8-16); BLOOD UREA NITROGEN 19 mg/dl (7-20); CALCIUM 9.2 mg/dl (8.4-10.2); CARBON DIOXIDE 26 mmol/L (21-31); CHLORIDE 108 mmol/L (97-110); CREATININE 0.96 mg/dl (0.61-1.24); GLUCOSE 104 mg/dl (70-220); POTASSIUM 3.9 mmol/L (3.5-5.1); SODIUM 149 mmol/L (135-144)
[2017-05-22 16:47] LABS: TROPONIN-I 0.017 ng/ml (0.00-0.12)
[2017-05-22 18:58] LABS: TROPONIN-I < 0.012 ng/ml (0.00-0.12)
[2017-05-22] MEDS ORDERED: SOD CHLORIDE 0.45% 1,000 ML IV (19:44)
[2017-05-22] MEDS ORDERED: HYDROCODONE/APAP (5/325) TAB PO (20:00)
[2017-05-22] MEDS ORDERED: LORAZEPAM 2 MG INJ IV (20:00)
[2017-05-22] MEDS ORDERED: ONDANSETRON 4 MG INJ IV ×2 (20:00)
[2017-05-22] MEDS ORDERED: BISACODYL (EC) 5 MG TAB PO (20:00)
[2017-05-22] MEDS ORDERED: ACETAMINOPHEN 325 MG TAB PO (20:00)
[2017-05-22] MEDS ORDERED: NACL 0.9% 3 ML SYG IV (20:00)
[2017-05-22] MEDS: SOD CHLORIDE 0.9% 1,000 ML IV (20:30)
[2017-05-22] MEDS: DOCUSATE SODIUM 100 MG CAP PO (20:56)
[2017-05-22] MEDS: ISOSORBIDE DINITRATE 20 MG TAB PO (20:57)
[2017-05-22] MEDS: ATORVASTATIN 80 MG TAB PO (20:57)
[2017-05-22] MEDS: CALCIUM CARBONATE 500 MG CHEW TAB PO (20:57)
[2017-05-22 22:20] LABS: CREATINE KINASE 89 IU/L (23-200)
[2017-05-22 22:30] LABS: CK INDEX 0.7; TROPONIN-I 0.017 ng/ml (0.00-0.12)
[2017-05-22 22:33] LABS: CK-MB 0.65 ng/ml (0.0-2.4)
[2017-05-23 05:16] LABS: ADD MAN DIFF? NO
[2017-05-23 05:21] LABS: WHITE BLOOD COUNT 7.1 10^3/ul (4.8-10.8)
[2017-05-23 05:21] LABS: BASOPHILS % 0.6 % (0.0-2.0); EOSINOPHILS # 0.4 10^3/ul (0.0-0.5); EOSINOPHILS % 5.2 % (0.0-7.0); HEMATOCRIT 33.2 % (42.0-52.0); HEMOGLOBIN 10.9 g/dl (14.0-18.0); LYMPHOCYTES # 1.9 10^3/ul (0.8-2.9); LYMPHOCYTES % 26.9 % (15.0-51.0); MEAN CORPUSCULAR HEMOGLOBIN 27.7 pg (29.0-33.0); MEAN CORPUSCULAR HGB CONC 32.8 g/dl (32.0-37.0); MEAN CORPUSCULAR VOLUME 84.3 fl (82.0-101.0); MEAN PLATELET VOLUME 11.9 fl (7.4-10.4); MONOCYTE # 0.6 10^3/ul (0.3-0.9); MONOCYTES % 8.4 % (0.0-11.0); NEUTROPHIL # 4.2 10^3/ul (1.6-7.5); NEUTROPHILS % 58.6 % (39.0-77.0); PLATELET COUNT 246 10^3/UL (140-415); RED BLOOD COUNT 3.94 10^6/ul (4.70-6.10); RED CELL DISTRIBUTION WIDTH 14.6 % (11.5-14.5)
[2017-05-23] MEDS: morphine 2 MG INJ IV (05:21)
[2017-05-23] MEDS: PANTOPRAZOLE (EC) 40 MG TAB PO (05:23)
[2017-05-23 05:35] LABS: ALANINE AMINOTRANSFERASE 29 IU/L (13-69); ALBUMIN/GLOBULIN RATIO 1.29; ALKALINE PHOSPHATASE 68 IU/L (42-121); ANION GAP 16 (8-16); ASPARTATE AMINO TRANSFERASE 17 IU/L (15-46); BLOOD UREA NITROGEN 19 mg/dl (7-20); CARBON DIOXIDE 29 mmol/L (21-31); CHLORIDE 108 mmol/L (97-110); CHOLESTEROL 178 mg/dl (100-200); CREATININE 0.89 mg/dl (0.61-1.24); GLUCOSE 100 mg/dl (70-220); HDL CHOLESTEROL 35 mg/dl (28-71); LDL CHOLESTEROL,CALCULATED 90 mg/dl; POTASSIUM 4.2 mmol/L (3.5-5.1); SODIUM 149 mmol/L (135-144); TOTAL PROTEIN 7.1 g/dl (6.1-8.1); TRIGLYCERIDES 264 mg/dl (0-149)
[2017-05-23 05:46] LABS: CK INDEX 0.8; CREATINE KINASE 82 IU/L (23-200); TROPONIN-I 0.026 ng/ml (0.00-0.12)
[2017-05-23 05:49] LABS: CK-MB 0.66 ng/ml (0.0-2.4)
[2017-05-23] MEDS: DOCUSATE SODIUM 100 MG CAP PO (07:45)
[2017-05-23] MEDS: CALCIUM CARBONATE 500 MG CHEW TAB PO ×2 (07:45→13:32)
[2017-05-23 07:59] LABS: CREATINE KINASE 81 IU/L (23-200)
[2017-05-23 08:12] LABS: CK INDEX 0.7; TROPONIN-I 0.027 ng/ml (0.00-0.12)
[2017-05-23 08:27] LABS: CK-MB 0.59 ng/ml (0.0-2.4)
[2017-05-23] MEDS: REGADENOSON 0.4 MG/5 ML SYG (09:09)
[2017-05-23] MEDS: SOD CHLORIDE 0.9% 1,000 ML IV (09:50)
[2017-05-23] MEDS: LISINOPRIL 20 MG TAB PO (10:44)
[2017-05-23] MEDS: ASPIRIN (EC) 81 MG TAB PO (10:44)
[2017-05-23] MEDS: PRASUGREL HYDROCHLORIDE 10 MG TABLET PO (10:44)
[2017-05-23] MEDS: ACETAMINOPHEN 325 MG TAB PO (10:52)
[2017-05-25] MEDS ORDERED: INFLUENZA VIRUS VACCINE 0.5 ML (DISPENSING) IM* (09:00)
== END 2017-05-23 13:50 | disposition home or self-care (01) ==
LOC: E/R 15:26 → TEL 19:35
DX: R07.89 Other chest pain (principal); M54.2 Cervicalgia; I25.5 Ischemic cardiomyopathy; I10 Essential (primary) hypertension; I25.10 Atherosclerotic heart disease of native coronary artery without angina pectoris; Z95.5 Presence of coronary angioplasty implant and graft; E78.5 Hyperlipidemia, unspecified; F41.9 Anxiety disorder, unspecified; E66.9 Obesity, unspecified; Z68.35 Body mass index [BMI] 35.0-35.9, adult; Z87.891 Personal history of nicotine dependence; Z82.49 Family history of ischemic heart disease and other diseases of the circulatory system
CPT/HCPCS: 36415; 71045; 78452; 80048; 80053; 80061; 82550; 82553; 83735; 84443; 84484; 85025; 93005; 93017; 93306; 96374; 96375; 99285-25; G0378

== ENCOUNTER 2018-06-06 18:22 | Observation (INO) | payer OTHER ==
[~2018-06-06 18:22] MED LIST: ASPIRIN 81 MG TAB; HEPARIN 5,000 UNIT/1 ML VIAL
[2018-06-06 18:52] LABS: ADD MAN DIFF? NO
[2018-06-06] MEDS: ASPIRIN 81 MG TAB PO ×2 (18:52)
[2018-06-06] MEDS: HEPARIN 1000 UNITS/ML 10 ML INJ IV (18:53)
[2018-06-06 18:55] LABS: ABNORMAL IP MESSAGE 1; BASOPHIL # 0.1 10^3/ul (0.0-0.1); BASOPHILS % 0.7 % (0.0-2.0); EOSINOPHILS # 0.3 10^3/ul (0.0-0.5); EOSINOPHILS % 3.6 % (0.0-7.0); HEMATOCRIT 40.1 % (42.0-52.0); HEMOGLOBIN 12.2 g/dl (14.0-18.0); LYMPHOCYTES # 2.1 10^3/ul (0.8-2.9); MEAN CORPUSCULAR HEMOGLOBIN 24.5 pg (29.0-33.0); MEAN CORPUSCULAR HGB CONC 30.4 g/dl (32.0-37.0); MEAN CORPUSCULAR VOLUME 80.7 fl (82.0-101.0); MONOCYTE # 0.9 10^3/ul (0.3-0.9); MONOCYTES % 9.5 % (0.0-11.0); NEUTROPHIL # 5.7 10^3/ul (1.6-7.5); NEUTROPHILS % 62.9 % (39.0-77.0); PLATELET COUNT 273 10^3/UL (140-415); POSITIVE DIFF @See below; RED BLOOD COUNT 4.97 10^6/ul (4.70-6.10); RED CELL DISTRIBUTION WIDTH 25.7 % (11.5-14.5)
[2018-06-06 18:55] LABS: WHITE BLOOD COUNT 9.1 10^3/ul (4.8-10.8)
[2018-06-06] MEDS: NITROGLYCERIN 2% 1 GM OINT PKT TD (18:55)
[2018-06-06] MEDS ORDERED: NITROGLYCERIN (SL) 0.4 MG TAB SL (19:00)
[2018-06-06] MEDS ORDERED: LIDOCAINE 1% (MDV) 20 ML INJ ×2 (19:08→19:17)
[2018-06-06] MEDS ORDERED: MIDAZOLAM 1 MG/ML 2 ML INJ (19:09)
[2018-06-06] MEDS ORDERED: NITROGLYCERIN (IC) 100 MCG/ML INJ ×2 (19:09→19:17)
[2018-06-06] MEDS ORDERED: IODIXANOL LOCM 100 ML BTL ×2 (19:09→19:17)
[2018-06-06] MEDS ORDERED: FENTAnyl 50 MCG/ML VIAL (19:09)
[2018-06-06] MEDS ORDERED: IOHEXOL 350MG/ML 50 ML BTL (19:09)
[2018-06-06 19:11] LABS: ANION GAP 11 (5-13); BLOOD UREA NITROGEN 18 mg/dl (7-20); CALCIUM 9.8 mg/dl (8.4-10.2); CARBON DIOXIDE 27 mmol/L (21-31); CHLORIDE 105 mmol/L (97-110); Estimated GFR > 60 mL/min (>60); GLUCOSE 132 mg/dl (70-220); POTASSIUM 4.2 mmol/L (3.5-5.1); SODIUM 143 mmol/L (135-144)
[2018-06-06] MEDS ORDERED: SOD CHLORIDE 0.9% 1,000 ML (19:17)
[2018-06-06] MEDS ORDERED: HEPARIN 1000 UNITS/ML 10 ML INJ (19:17)
[2018-06-06] MEDS ORDERED: VERAPAMIL 5 MG INJ (19:17)
[2018-06-06 19:23] LABS: TROPONIN-I < 0.012 ng/ml (0.000-0.120)
[2018-06-06] MEDS ORDERED: AL HYDROX/MG HYDROX/SIMETH 30 ML CUP PO (20:30)
[2018-06-06] MEDS ORDERED: ONDANSETRON 4 MG INJ IV (20:30)
[2018-06-06] MEDS ORDERED: ACETAMINOPHEN 325 MG TAB PO (20:30)
[2018-06-06] MEDS ORDERED: ZOLPIDEM 5 MG TAB PO (20:30)
[2018-06-06] MEDS: ATORVASTATIN 40 MG TAB PO (21:30)
[2018-06-06] MEDS: SOD CHLORIDE 0.9% 1,000 ML IV (22:07)
[2018-06-06] MEDS: ISOSORBIDE DINITRATE 5 MG TAB PO (22:48)
[2018-06-07 00:56] LABS: CREATINE KINASE 67 IU/L (23-200)
[2018-06-07 01:08] LABS: CK INDEX 0.5; CK-MB 0.35 ng/ml (0.0-2.4); TROPONIN-I < 0.012 ng/ml (0.000-0.120)
[2018-06-07 05:41] LABS: ADD MAN DIFF? NO
[2018-06-07 05:49] LABS: WHITE BLOOD COUNT 6.5 10^3/ul (4.8-10.8)
[2018-06-07 05:49] LABS: ABNORMAL IP MESSAGE 1; BASOPHIL # 0.1 10^3/ul (0.0-0.1); BASOPHILS % 0.8 % (0.0-2.0); EOSINOPHILS # 0.3 10^3/ul (0.0-0.5); EOSINOPHILS % 5.2 % (0.0-7.0); HEMATOCRIT 38.2 % (42.0-52.0); HEMOGLOBIN 11.3 g/dl (14.0-18.0); LYMPHOCYTES # 1.5 10^3/ul (0.8-2.9); LYMPHOCYTES % 23.3 % (15.0-51.0); MEAN CORPUSCULAR HEMOGLOBIN 24.1 pg (29.0-33.0); MEAN CORPUSCULAR HGB CONC 29.6 g/dl (32.0-37.0); MEAN CORPUSCULAR VOLUME 81.4 fl (82.0-101.0); MONOCYTE # 0.6 10^3/ul (0.3-0.9); MONOCYTES % 9.4 % (0.0-11.0); PLATELET COUNT 253 10^3/UL (140-415); POSITIVE DIFF @See below; RED BLOOD COUNT 4.69 10^6/ul (4.70-6.10); RED CELL DISTRIBUTION WIDTH 25.7 % (11.5-14.5)
[2018-06-07 06:25] LABS: HEMOGLOBIN A1C 5.1 % (0-5.9)
[2018-06-07 06:32] LABS: CREATINE KINASE 60 IU/L (23-200)
[2018-06-07 06:34] LABS: CK INDEX 0.7; CK-MB 0.43 ng/ml (0.0-2.4); TROPONIN-I 0.038 ng/ml (0.000-0.120)
[2018-06-07 06:35] LABS: ANION GAP 7 (5-13); BLOOD UREA NITROGEN 15 mg/dl (7-20); CARBON DIOXIDE 24 mmol/L (21-31); CHLORIDE 112 mmol/L (97-110); CHOL/HDL RATIO 5.7 RATIO; CREATININE 0.77 mg/dl (0.61-1.24); Estimated GFR > 60 mL/min (>60); GLUCOSE 107 mg/dl (70-220); HDL CHOLESTEROL 35 mg/dl (28-71); LDL CHOLESTEROL,CALCULATED 103 mg/dl; POTASSIUM 4.4 mmol/L (3.5-5.1); SODIUM 143 mmol/L (135-144); TRIGLYCERIDES 312 mg/dl (0-149)
[2018-06-07 06:35] LABS: CHOLESTEROL 200 mg/dl (100-200)
[2018-06-07] MEDS: ASPIRIN (EC) 81 MG TAB PO (08:28)
[2018-06-07] MEDS: CLOPIDOGREL 75 MG TAB PO (08:28)
[2018-06-07] MEDS: ISOSORBIDE DINITRATE 5 MG TAB PO (08:29)
[2018-06-07] MEDS: LISINOPRIL 20 MG TAB PO (11:27)
[2018-06-07] MEDS: ISOSORBIDE MONONITRATE(SR)30 MG TAB PO (12:29)
[2018-06-07] MEDS: PRASUGREL HYDROCHLORIDE 10 MG TABLET PO (12:29)
[2018-06-07] MEDS ORDERED: ISOSORBIDE DINITRATE 5 MG TAB PO (13:00)
== END 2018-06-07 17:42 | disposition home or self-care (01) ==
LOC: E/R 18:22 → CCL 19:09 → SDS 19:50 → CCL 20:13 → ICU 20:13
DX: I21.3 ST elevation (STEMI) myocardial infarction of unspecified site (principal); I10 Essential (primary) hypertension; E78.5 Hyperlipidemia, unspecified; Z79.82 Long term (current) use of aspirin; Z72.0 Tobacco use; E66.9 Obesity, unspecified; Z68.35 Body mass index [BMI] 35.0-35.9, adult
CPT/HCPCS: 36415; 71045; 80048; 80061; 82550; 82553; 83036; 84484; 85025; 87081; 93005; 93306; 93458; 96374; 99291-25